=== PATIENT | female | born 1955 | race African-American/Black ===

== ENCOUNTER 2016-11-07 16:50 | Outpatient (CLI) | payer MEDICARE, OTHER ==
[2016-04-11 23:33] VITALS: BP 110/63
== END 2016-11-07 16:52 ==
LOC: LAB 16:50
PROVIDERS: ATTEND Family Medicine
DX: J40 Bronchitis, not specified as acute or chronic (principal)
CPT/HCPCS: 87070; 87205

== ENCOUNTER 2017-02-13 10:42 | Outpatient (CLI) | payer MEDICARE, OTHER ==
[2016-04-11 23:33] VITALS: BP 110/63
[2017-02-13 11:01] LABS: BASOPHILS % 0.3 (0.0-1.5); MEAN CORPUSCULAR HEMOGLOBIN 31.2 pg (28.0-34.0); MEAN CORPUSCULAR VOLUME 98.2 fl (80.0-100.0); MONOCYTES % 6.8 % (0.0-11.0); NEUTROPHILS # 4.1 # k/uL (1.4-7.7)
[2017-02-13 11:32] LABS: eGFR (African) 8; eGFR (Non-African) 7
--- NOTE | 2017-02-13 14:47 | Diagnostic Imaging Report ---
MALICK TINSLEY - OP [facility] [address] [facility] [address] Report Submission Date: Feb 13, 2017 11:23:49 AM CDT Patient Study Name: LORETA URIBE Date: Feb 13, 2017 11:01:33 AM CDT Modality Type: CR Gender: F Description: CHEST : 57 Institution: [facility] Physician: MALICK TINSLEY - KASHIF Chest - two views Clinical history: Preoperative evaluation. Findings: Examination of the chest in PA and lateral views with comparison to examination of 01/07/2017 demonstrates the lungs to be clear. Cardiovascular and mediastinal silhouettes are stable. Multiple sternotomy wires are again seen. Degenerative changes are seen in the thoracic vertebrae. Impression: 1. Postoperative chest. 2. Aortic atherosclerosis. 3. No active disease. Electronically signed on Feb 13, 2017 11:23:49 AM CDT by: Rosas ANGELES
== END 2017-02-13 10:44 ==
LOC: LAB 10:42
PROVIDERS: ATTEND Otolaryngology
DX: Z51.81 Encounter for therapeutic drug level monitoring (principal); Z79.899 Other long term (current) drug therapy; Z01.818 Encounter for other preprocedural examination
CPT/HCPCS: 36415; 71020; 80053; 85025

== ENCOUNTER 2018-02-19 15:54 | Outpatient (CLI) | payer MEDICARE, OTHER ==
[2016-04-11 23:33] VITALS: BP 110/63
--- NOTE | 2018-02-20 11:09 | OP Clinic Progress Note ---
REASON FOR VISIT: Sonja is seen accompanied by her mother. She is a 62-year-old female patient who is seen in a wheelchair. By history, she is on dialysis. She also has a history of a goiter. The history is provided in part by the patient and also in part by her daughter. There is a question if she at times gets fluid on her lungs and the question would be whether she might be aspirating. The patient has a little tension in her voice. Nevertheless, I used a flexible fiberoptic pediatric laryngoscope passing down the left nostril, as there is right nasal septal deviation. I had a very good look at her larynx. There is no laryngeal lesion or supraglottic lesion. Both vocal cords abduct apart or adduct together really very normally. There is no evident mass or lesion. There is no paralysis and there is good closure. I had the patient's daughter look in the laryngoscope twice and although she has not seen a larynx before, she can clearly see that the V-shaped structure opens and closes and there is confirmation that there is good closure. The patient does have some dysphagia. By history, she does not clearly aspirate. There are no complaints that she coughs and chokes and sputters when she eats. PLAN: I suggested getting a video swallow. At that point, the daughter noted that she had that study done perhaps 2 years ago at the [facility]. They state that they are comfortable and would like to go ahead and get a repeat video swallow. That can be done here at [facility] and that will be arranged in the near future. I will have a copy of it sent to Dr. Pratt when that occurs. cc: Dr. Mag ANGELES
== END 2018-02-19 15:55 ==
LOC: ENT 15:54
PROVIDERS: ATTEND Otolaryngology
DX: R13.10 Dysphagia, unspecified (principal)
CPT/HCPCS: 31575; G0463

== ENCOUNTER 2018-02-21 11:41 | Outpatient (CLI) | payer MEDICARE, OTHER ==
[2016-04-11 23:33] VITALS: BP 110/63
--- NOTE | 2018-02-21 19:03 | Diagnostic Imaging Report ---
MALICK TINSLEY [facility] [address] [facility] [address] [place], [place]. [address] Report Submission Date: Feb 21, 2018 12:59:25 PM CDT Patient Study Name: LORETA URIBE V Date: Feb 21, 2018 12:17:47 PM CDT Modality Type: CT\SR Gender: F Description: CT BRAIN W/O CONTRAST : 57 Institution: [facility] Physician: MALICK TINSLEY Examination: CT head without contrast History: CT HEAD W/O, SUBDURAL HEMATOMA, PT STATES SHE HAD A FALL ABOUT A WEEK AGO AND HAS BEEN SEEING THINGS SINCE (Hx) Comparison exam: None available Technique: Noncontrast head CT protocol. Findings: Ventricles and sulci are prominent, though consistent for patient age. Cerebrocerebellar parenchyma demonstrates periventricular low attenuation consistent with small vessel disease. No evidence for parenchymal hemorrhage. No evidence for mass or mass effect. No midline shift. No extra axial fluid collections. Partial visualization of the paranasal sinuses, mastoid air cells, orbits, skull and scalp without gross irregularity. Scattered falx calcifications. Impression: Age related changes. No acute parenchymal process. No hemorrhage. Electronically signed on Feb 21, 2018 12:59:25 PM CDT by: Antoine ANGELES
== END 2018-02-21 11:42 ==
LOC: RAD 11:41
PROVIDERS: ATTEND Family Medicine
DX: I62.00 Nontraumatic subdural hemorrhage, unspecified (principal)
CPT/HCPCS: 70450

== ENCOUNTER 2018-02-26 15:02 | Outpatient (CLI) | payer MEDICARE, OTHER ==
[2016-04-11 23:33] VITALS: BP 110/63
== END 2018-02-26 15:03 ==
LOC: RAD 15:02
PROVIDERS: ATTEND Family Medicine
DX: R47.02 Dysphasia (principal)
CPT/HCPCS: 74230

== ENCOUNTER 2018-04-19 20:57 | Emergency (ER) | payer MEDICARE, OTHER ==
[2018-04-19] MEDS ORDERED: IPRATROPIUM/ALBUTEROL SULFATE 3 ML AMPUL.NEB NEB ONE (21:11)
[2018-04-19 21:36] LABS: BASOPHILS % 0.6 (0.0-1.5); EOSINOPHILS % 1.8 % (0.0-6.8); MEAN CORPUSCULAR HEMOGLOBIN 30.7 pg (28.0-34.0); MEAN CORPUSCULAR VOLUME 98.8 fl (80.0-100.0); MONOCYTES % 6.1 % (0.0-11.0); NEUTROPHILS # 3.6 # k/uL (1.4-7.7)
--- NOTE | 2018-04-19 21:57 | ED Physician Documentation ---
General Adult - HISTORIAN Historian: patient, child (daughter) - HPI Stated Complaint: SOA all day Chief Complaint: General Adult Additional Information: Did not go to dialysis yesterday as she did not feel well. Today she has been increasingly SOB. Typically uses 2L/NC for sleep, but has required 3L/NC all day. Last albuterol neb at 1600. Seen at [facility] on 04/15 for dialysis and blood transfusion. Carries diagnosis of pulmonary edema. Does not recognize "congestive heart failure." - ROS CONST: denies: fever, sweating CVS/RESP: shortness of breath. denies: chest pain, cough - PAST HX Past History: hypertension, other (subdural hematoma) Surgeries/Procedures: other (thoracotomy per CXR) Allergies/Adverse Reactions: Allergies Allergy/AdvReac Type Severity Reaction Status Date / Time acetaminophen [From Percocet] Allergy Verified 04/11/16 23:23 atorvastatin calcium Allergy Verified 04/11/16 23:23 [From Lipitor] clonidine Allergy Verified 04/11/16 23:23 hydrocodone Allergy Verified 04/11/16 23:23 ibuprofen Allergy Verified 04/11/16 23:23 Iodinated Contrast- Oral and Allergy Verified 04/11/16 23:23 IV Dye methylprednisolone Allergy Verified 04/11/16 23:23 morphine Allergy Verified 04/11/16 23:23 oxycodone HCl [From Percocet] Allergy Verified 04/11/16 23:23 Penicillins Allergy Verified 04/11/16 23:23 prednisone Allergy Verified 04/11/16 23:23 Home Medications: Ambulatory Orders Medication Instructions Recorded Levothyroxine Sodium [Synthroid] 75 mcg PO DAILY 07/07/13 Aspirin [Aspir 81] 81 mg PO DAILY u2 07/29/13 traMADol HCL [Ultram] 50 mg PO Q6H PRN #30 tablet 03/08/15 Omeprazole [Prilosec] 40 mg PO DAILY #30 capsule. 03/21/15 Clopidogrel Bisulfate [Clopidogrel] 75 mg PO DAILY 12/05/15 Isosorbide Dinitrate [Isordil] 20 mg PO DAILY 12/05/15 Minoxidil [Loniten] 5 mg PO DAILY 12/05/15 Nitroglycerin [Nitrostat] 0.3 mg SL PRN PRN 12/05/15 Rosuvastatin Calcium [Crestor] 20 mg PO HS 12/05/15 Sevelamer Carbonate [Renvela] 2,400 mg PO BID 12/05/15 Cyclobenzaprine HCl 10 mg PO Q8 PRN 04/11/16 LORazepam [Ativan] 1 mg PO QID PRN 04/11/16 Metoprolol Tartrate [Lopressor] 25 mg PO BID 04/11/16 hydrALAZINE HCL [Apresoline] 20 mg PO TID 04/11/16 traZODone HCL [Desyrel] 50 mg PO HS 04/11/16 - SOCIAL HX Smoking History: non-smoker - FAMILY HX Family History: No - VITAL SIGNS Vital Signs: Vital Signs Temp Pulse Resp BP Pulse Ox 97.3 F L 96 H 16 154/83 87 L 04/19/18 20:58 04/19/18 20:58 04/19/18 20:58 04/19/18 20:58 04/19/18 20:58 - REVIEWED ASSESSMENTS Nursing Assessment Reviewed: Yes Vitals Reviewed: Yes Progress - Progress Progress: Report Submission Date: Apr 19, 2018 9:51:04 PM CDT Patient Study Name: LORETA URIBE V Date: Apr 19, 2018 9:28:45 PM CDT Modality Type: DX Gender: F Description: CHEST : 57 Institution: [facility] Physician: AUSTIN LINDA - Portable chest Clinical history: Shortness of breath. Findings: Examination of the chest in single portable AP view with no prior films for comparison demonstrates haziness in the lung bases consistent with bilateral effusions and bibasilar atelectasis worse on the left. Cardiac silhouette is enlarged and the aorta is atherosclerotic. There are multiple sternotomy wires. Monitor leads superimpose the chest. Impression: 1. Cardiomegaly and aortic atherosclerosis. 2. Postoperative chest. 3. Bilateral pleural effusions with bibasilar atelectasis. Electronically signed on Apr 19, 2018 9:51:04 PM CDT by: Rosas Del Toro Discussed with Dr. Resendiz, [facility] foil operator. Will transfer to ER. ED Results Lab/Radiology - Lab Results Lab Results: Lab Results 04/19/18 04/19/18 09:30 09:30 WBC 4.30 K/ul K/ul (4.00-12.00) RBC 2.75 M/ul L M/ul (3.90-5.20) Hgb 8.4 g/dL L g/dL (12.0-16.0) Hct 27.2 % L % (34.5-46.5) MCV 98.8 fl fl (80.0-100.0) MCH 30.7 pg pg (28.0-34.0) MCHC 31.0 g/dL g/dL (30.0-36.0) RDW 17.3 % H % (11.3-14.3) Plt Count 204 K/mm3 K/mm3 (130-400) Neut % (Auto) 82.2 % H % (39.0-79.0) Lymph % (Auto) 8.0 % L % (16.0-50.0) [place] % (Auto) 6.1 % % (0.0-11.0) Eos % (Auto) 1.8 % % (0.0-6.8) Baso % (Auto) 0.6 (0.0-1.5) Neut # (Auto) 3.6 # k/uL # k/uL (1.4-7.7) Lymph # (Auto) 0.3 # k/uL L # k/uL (0.6-4.0) [place] # (Auto) 0.3 # k/uL # k/uL (0.0-0.9) Eos # (Auto) 0.1 # k/uL # k/uL (0.0-0.6) Baso # (Auto) 0.0 # k/uL # k/uL (0.0-0.5) Reactive Lymphs % 1.4 % % (0.0-5.0) Reactive Lymphs # 0.1 # k/uL # k/uL (0.0-0.8) Sodium 139 mmol/L mmol/L (136-145) Potassium 4.2 mmol/L mmol/L (3.5-5.1) Chloride 95 mmol/L L mmol/L (98-107) Carbon Dioxide 29 mmol/L mmol/L (22-30) BUN 46 mg/dL H mg/dL (7-17) Creatinine 11.10 mg/dL H mg/dL (0.52-1.04) Estimated Creat Clear 7 Est GFR ( Amer) 4 L (60 - ) Est GFR (Non-Af Amer) 4 L (60 - ) Glucose 110 mg/dL H mg/dL (74-106) Calcium 10.0 mg/dL mg/dL (8.4-10.2) Total Bilirubin 0.8 mg/dL mg/dL (0.2-1.3) AST 12 U/L L U/L (15-46) ALT 31 U/L U/L (13-69) Alkaline Phosphatase 71 U/L U/L (38-126) Total Protein 6.8 g/dL g/dL (6.3-8.2) Albumin 3.7 g/dL g/dL (3.5-5.0) - Orders Orders: ED Orders Category Date Time Status Place IV Lock 1T Care 04/19/18 21:09 Active CHEST 1VIEW [RAD] Stat Exams 04/19/18 Taken BNP [NT-proBNP] Stat Lab 04/19/18 09:30 Received CBC/PLATELET/DIFF Routine Lab 04/19/18 09:30 Completed CMP Routine Lab 04/19/18 09:30 Completed TROPONIN I (cTnI) Stat Lab 04/19/18 Ordered URINALYSIS Routine Lab 04/19/18 Ordered Ipratropium/Albuterol Sulfate [Duoneb] Med 04/19/18 21:11 Discontinued 3 ml NEB NOW ONE General Adult Physical Exam - PHYSICAL EXAM GENERAL APPEARANCE: moderate distress EENT: eye inspection normal, ENT inspection normal, pharynx normal NECK: normal inspection, supple RESPIRATORY: rales (throughout) CVS: reg rate & rhythm, heart sounds normal ABDOMEN: soft, normal bowel sounds, no distension SKIN: warm/dry EXTREMITIES: non-tender, no evidence of injury, no edema NEURO: CN's nml as tested, motor nml, sensation nml, cognition normal (slow to respond (daughter says this is normal), whispers) Discharge Clincal Impression: End stage kidney disease Dyspnea Qualifiers: Dyspnea type: shortness of breath Qualified Code(s): R06.02 - Shortness of breath; R06.00 - Dyspnea, unspecified; R06.01 - Orthopnea Referrals: Mag Pratt MD [Primary Care Provider] - 2 Days Condition: Fair Disposition: XFER SHT-TRM HOSP Decision to Admit: NO Decision Time: 22:18
--- NOTE | 2018-04-19 22:03 | Diagnostic Imaging Report ---
AUSTIN LINDA [facility] [address] [facility] [address] [address] Report Submission Date: Apr 19, 2018 9:51:04 PM CDT Patient Study Name: LORETA URIBE V Date: Apr 19, 2018 9:28:45 PM CDT Modality Type: DX Gender: F Description: CHEST : 57 Institution: [facility] Physician: AUSTIN LINDA Portable chest Clinical history: Shortness of breath. Findings: Examination of the chest in single portable AP view with no prior films for comparison demonstrates haziness in the lung bases consistent with bilateral effusions and bibasilar atelectasis worse on the left. Cardiac silhouette is enlarged and the aorta is atherosclerotic. There are multiple sternotomy wires. Monitor leads superimpose the chest. Impression: 1. Cardiomegaly and aortic atherosclerosis. 2. Postoperative chest. 3. Bilateral pleural effusions with bibasilar atelectasis. Electronically signed on Apr 19, 2018 9:51:04 PM CDT by: Rosas ANGELES
[2018-04-20 00:02] VITALS: BP 144/82
== END 2018-04-19 22:48 | disposition short-term general hospital (02) ==
LOC: ED 20:57
DX: N18.6 End stage renal disease (principal); R06.00 Dyspnea, unspecified; R06.01 Orthopnea
CPT/HCPCS: 71045; 80053; 83880; 84484; 85025; 94640; 99284; S1016

== ENCOUNTER 2018-09-27 14:53 | Emergency (ER) | payer MEDICARE, OTHER ==
--- NOTE | 2018-09-27 15:14 | ED Physician Documentation ---
General Adult - HISTORIAN Historian: patient - HPI Stated Complaint: back pain/chest pain x 3 years Chief Complaint: Chest Pain Onset: other (3 years pain is 01-/10 scale ) Timing: still present Severity: mild Further Comments: yes (She reports she has pain in her back that is sometimes in her chest and sometimes all over with mild relief from her muscle relaxer and tylenol at home (she is a diaylisis patient) She has no fever. No new activity . She has pain with touch or movement. She denies any N/V although she at times today felt some nausea. Denies any bleeding.) - ROS CONST: no problems - PAST HX Past History: renal disease, other (hypothyroidism ) Allergies/Adverse Reactions: Allergies Allergy/AdvReac Type Severity Reaction Status Date / Time acetaminophen [From Percocet] Allergy Verified 04/11/16 23:23 atorvastatin calcium Allergy Verified 04/11/16 23:23 [From Lipitor] clonidine Allergy Verified 04/11/16 23:23 hydrocodone Allergy Verified 04/11/16 23:23 ibuprofen Allergy Verified 04/11/16 23:23 Iodinated Contrast- Oral and Allergy Verified 04/11/16 23:23 IV Dye methylprednisolone Allergy Verified 04/11/16 23:23 morphine Allergy Verified 04/11/16 23:23 oxycodone HCl [From Percocet] Allergy Verified 04/11/16 23:23 Penicillins Allergy Verified 04/11/16 23:23 prednisone Allergy Verified 04/11/16 23:23 Home Medications: Ambulatory Orders Medication Instructions Recorded Levothyroxine Sodium [Synthroid] 75 mcg PO DAILY 07/07/13 Aspirin [Aspir 81] 81 mg PO DAILY u2 07/29/13 traMADol HCL [Ultram] 50 mg PO Q6H PRN #30 tablet 03/08/15 Omeprazole [Prilosec] 40 mg PO DAILY #30 capsule. 03/21/15 Clopidogrel Bisulfate [Clopidogrel] 75 mg PO DAILY 12/05/15 Isosorbide Dinitrate [Isordil] 20 mg PO DAILY 12/05/15 Minoxidil [Loniten] 5 mg PO DAILY 12/05/15 Nitroglycerin [Nitrostat] 0.3 mg SL PRN PRN 12/05/15 Rosuvastatin Calcium [Crestor] 20 mg PO HS 12/05/15 Sevelamer Carbonate [Renvela] 2,400 mg PO BID 12/05/15 Cyclobenzaprine HCl 10 mg PO Q8 PRN 04/11/16 LORazepam [Ativan] 1 mg PO QID PRN 04/11/16 Metoprolol Tartrate [Lopressor] 25 mg PO BID 04/11/16 hydrALAZINE HCL [Apresoline] 20 mg PO TID 04/11/16 traZODone HCL [Desyrel] 50 mg PO HS 04/11/16 - SOCIAL HX Smoking History: non-smoker Alcohol Use: none Drug Use: none - FAMILY HX Family History: No - VITAL SIGNS Vital Signs: Vital Signs Temp Pulse Resp BP Pulse Ox 144/82 04/19/18 23:54 - REVIEWED ASSESSMENTS Nursing Assessment Reviewed: Yes Vitals Reviewed: Yes Progress - Progress Progress: 1630: continues to rate pain 11/06 DG 1645: lab and results discussed with pt and daughter. Will call [facility] for possible admission. DG 1720: Dr Crisostomo admission accepting DG 1800: nurse attempted report [facility] will call back. Pt continues to rate pain at 1 .DG 1820: Nurse attempted report [facility] will call back DG 1850: nurse was able to give report and ambulance called for transport DG ED Results Lab/Radiology - Radiology Radiology Impressions: Portable chest History: Chest pain Findings: Heart size is upper normal. Pulmonary vascularity is normal. The lungs are clear. There is no pleural effusion. Obesity is observed. Impression: Upper normal heart size, sternotomy, and obesity. Electronically signed on Sep 27, 2018 4:10:39 PM IT SERVICE DELIVERY MANAGER by: Arya Escobedo General Adult Physical Exam - PHYSICAL EXAM GENERAL APPEARANCE: no distress EENT: eye inspection normal, ENT inspection normal, no signs of dehydration NECK: normal inspection RESPIRATORY: no resp distress, chest non-tender, breath sounds normal, other (pain with palpation on right side upper chest. ) CVS: reg rate & rhythm, heart sounds normal, equal pulses, no murmur ABDOMEN: soft, no distension BACK: normal inspection, no CVA tenderness SKIN: warm/dry, normal color EXTREMITIES: non-tender, normal range of motion, no evidence of injury, no edema NEURO: oriented X3 Discharge Clincal Impression: End stage kidney disease CHF (congestive heart failure) Qualifiers: Heart failure type: unspecified Heart failure chronicity: chronic Qualified Code(s): I50.9 - Heart failure, unspecified Referrals: Mag Pratt MD [Primary Care Provider] - 2 Days Comments: Dr Crisostomo accepting DG Condition: Fair Disposition: 02 XFER SHT-TRM HOSP Decision to Admit: NO Date of Decison to Admit: 09/27/18 Decision Time: 17:50
--- NOTE | 2018-09-27 18:19 | Diagnostic Imaging Report ---
CHARLI VARGAS [facility] [place] [facility] [address] [facility] [address] [place], [place]. [address] Report Submission Date: Sep 27, 2018 4:10:39 PM FOLDER MACHINE Patient Study Name: LORETA URIBE V Date: Sep 27, 2018 3:49:54 PM FOLDER MACHINE Modality Type: DX Gender: F Description: CHEST : 57 Institution: [facility] [place] [facility] Physician: CHARLI VARGAS Portable chest History: Chest pain Findings: Heart size is upper normal. Pulmonary vascularity is normal. The lungs are clear. There is no pleural effusion. Obesity is observed. Impression: Upper normal heart size, sternotomy, and obesity. Electronically signed on Sep 27, 2018 4:10:39 PM FOLDER MACHINE by: Arya ANGELES
[2018-09-27 19:18] VITALS: BP 114/68
[2018-09-28 07:20] LABS: MEAN CORPUSCULAR HEMOGLOBIN 31.1 pg (28.0-34.0)
[2018-09-28 07:21] LABS: BASOPHILS % 0.1 (0.0-1.5); EOSINOPHILS % 1.1 % (0.0-6.8); MONOCYTES % 6.3 % (0.0-11.0); NEUTROPHILS # 6.1 # k/uL (1.4-7.7)
== END 2018-09-27 19:08 | disposition short-term general hospital (02) ==
LOC: ED 14:53
DX: I50.9 Heart failure, unspecified (principal); N18.6 End stage renal disease; Z99.2 Dependence on renal dialysis
CPT/HCPCS: 36415; 71045; 80053; 82550; 83880; 84484; 85025; 99285

== ENCOUNTER 2018-10-01 11:54 | Outpatient (CLI) | payer MEDICARE, OTHER ==
[2018-10-01 16:06] LABS: MEAN CORPUSCULAR HEMOGLOBIN 30.3 pg (28.0-34.0)
[2018-10-01 16:07] LABS: BASOPHILS % 1 % (0-2); EOSINOPHILS % 1 % (0-7); HYPERSEGMENTED NEUTROPHILS PRESENT; MONOCYTES % 7 % (0-11); SEGMENTED NEUTROPHILS % 79 % (39-79)
[2018-10-01 16:08] LABS: ACANTHOCYTES 1+ (NEGATIVE); ANISOCYTOSIS 1+ (NEGATIVE); HYPOCHROMASIA 1+ (NEGATIVE); OVALOCYTES 1+ (NEGATIVE); PLT EST. EST. AGREES W/PLT CT; TARGET CELLS 1+ (NEGATIVE)
== END 2018-10-01 11:56 ==
LOC: LAB 11:54
PROVIDERS: ATTEND Family Medicine
DX: D64.9 Anemia, unspecified (principal)
CPT/HCPCS: 36415; 85025

== ENCOUNTER 2018-10-08 10:00 | Outpatient (CLI) | payer MEDICARE, OTHER ==
[2018-10-08 14:05] LABS: MEAN CORPUSCULAR HEMOGLOBIN 30.5 pg (28.0-34.0)
[2018-10-08 14:06] LABS: BASOPHILS % 0 % (0-2); EOSINOPHILS % 1 % (0-7); HYPOCHROMASIA 1+ (NEGATIVE); MONOCYTES % 7 % (0-11); SEGMENTED NEUTROPHILS % 76 % (39-79)
== END 2018-10-08 10:03 ==
LOC: LAB 10:00
PROVIDERS: ATTEND Family Medicine
DX: D50.0 Iron deficiency anemia secondary to blood loss (chronic) (principal)
CPT/HCPCS: 36415; 85025

== ENCOUNTER 2018-12-09 11:27 | Outpatient (CLI) | payer MEDICARE, OTHER ==
[2018-12-09 11:56] LABS: MEAN CORPUSCULAR HEMOGLOBIN 28.5 pg (28.0-34.0)
== END 2018-12-09 11:30 ==
LOC: LAB 11:27
PROVIDERS: ATTEND Family Medicine
DX: D50.0 Iron deficiency anemia secondary to blood loss (chronic) (principal)
CPT/HCPCS: 36415; 85014; 85018

== ENCOUNTER 2018-12-15 13:37 | Outpatient (CLI) | payer MEDICARE, OTHER ==
[2018-12-15 14:16] LABS: MEAN CORPUSCULAR HEMOGLOBIN 28.1 pg (28.0-34.0)
== END 2018-12-15 13:40 ==
LOC: LAB 13:37
PROVIDERS: ATTEND Family Medicine
DX: D50.0 Iron deficiency anemia secondary to blood loss (chronic) (principal)
CPT/HCPCS: 36415; 85014; 85018

== ENCOUNTER 2019-08-28 13:02 | Emergency (ER) | payer MEDICARE, OTHER ==
--- NOTE | 2019-08-28 13:21 | ED Physician Documentation ---
General Adult - HISTORIAN Historian: patient - HPI Stated Complaint: chest pain chronic now resolved and unresponsive event Chief Complaint: General Adult Onset: other (6 months or more on chronic chest pain -0800 event of concern ) Timing: better Severity: mild Further Comments: yes (per daughter she has had chronic chest pain x 6 months and this am she was noted to seem to just fall back asleep about 0800 and she had a harder than normal time waking her. She had no residual - no weakness. no change in speech no shaking no other complaints. She had no chest pain and currently has no complaints of chest pain. No fall.) - ROS CONST: no problems EYES/ENT: none CVS/RESP: chest pain. denies: shortness of breath, cough GI/: none MS/SKIN/LYMPH: none NEURO/PSYCH: denies: headache, fainting, dizziness, tingling, numbness, difficulty walking, difficulty with speech - PAST HX Past History: other (diaylasis ) Immunizations: UTD Allergies/Adverse Reactions: Allergies Allergy/AdvReac Type Severity Reaction Status Date / Time atorvastatin calcium Allergy Verified 08/28/19 13:25 [From Lipitor] clonidine Allergy Verified 08/28/19 13:25 hydrocodone Allergy Verified 08/28/19 13:25 ibuprofen Allergy Verified 08/28/19 13:25 Iodinated Contrast Media Allergy Verified 08/28/19 13:25 methylprednisolone Allergy Verified 08/28/19 13:25 morphine Allergy Verified 08/28/19 13:25 oxycodone HCl [From Percocet] Allergy Verified 08/28/19 13:25 Penicillins Allergy Verified 08/28/19 13:25 prednisone Allergy Verified 08/28/19 13:25 Home Medications: Ambulatory Orders Medication Instructions Recorded Levothyroxine Sodium [Synthroid] 75 mcg PO DAILY 07/07/13 Aspirin [Aspir 81] 81 mg PO DAILY u2 07/29/13 traMADol HCL [Ultram] 50 mg PO Q6H PRN #30 tablet 03/08/15 Omeprazole [Prilosec] 40 mg PO DAILY #30 capsule. 03/21/15 Clopidogrel Bisulfate [Clopidogrel] 75 mg PO DAILY 12/05/15 Isosorbide Dinitrate [Isordil] 20 mg PO DAILY 12/05/15 Minoxidil [Loniten] 5 mg PO DAILY 12/05/15 Rosuvastatin Calcium [Crestor] 20 mg PO HS 12/05/15 LORazepam [Ativan] 1 mg PO QID PRN 04/11/16 Metoprolol Tartrate [Lopressor] 25 mg PO BID 04/11/16 - SOCIAL HX Smoking History: non-smoker Alcohol Use: none Drug Use: none - FAMILY HX Family History: No - VITAL SIGNS Vital Signs: Vital Signs Temp Pulse Resp BP Pulse Ox 114/68 09/27/18 19:15 - REVIEWED ASSESSMENTS Nursing Assessment Reviewed: Yes Vitals Reviewed: Yes Progress - Progress Progress: 1345: states chest pain - after CT (mid chest) has returned 05/06 DG 1356: Post x 3 nitro pain is resolved DG 1447: [facility] notified about possible admission Arelibonifacio will contact for accepting DG 1535: EMS here for transfer DG General Adult Physical Exam - PHYSICAL EXAM GENERAL APPEARANCE: no distress EENT: eye inspection normal, pharynx normal, no signs of dehydration NECK: normal inspection RESPIRATORY: no resp distress, chest non-tender, breath sounds normal CVS: reg rate & rhythm, heart sounds normal, equal pulses, no murmur ABDOMEN: soft, normal bowel sounds, no distension BACK: normal inspection, no CVA tenderness SKIN: warm/dry, normal color EXTREMITIES: non-tender, normal range of motion, no evidence of injury, no edema NEURO: oriented X3 Discharge Clincal Impression: Chest wall pain CHF (congestive heart failure) Qualifiers: Heart failure type: unspecified Heart failure chronicity: unspecified Qualified Code(s): I50.9 - Heart failure, unspecified Referrals: Mag Pratt MD [REFERRING] - 2 Days Comments: [facility] accepting DG Condition: Fair Disposition: 02 XFER SHT-TRM HOSP Decision to Admit: NO Date of Decison to Admit: 08/28/19 Decision Time: 14:59
[2019-08-28 13:38] LABS: BASOPHILS % 0.3 % (0.0-1.5); HYPOCHROMASIA 2+ (NEGATIVE); NEUTROPHILS # 6.5 # k/uL (1.4-7.7); SEGMENTED NEUTROPHILS % 80 % (39-79)
[2019-08-28] MEDS: NITROGLYCERIN 0.4 MG TAB.SUBL SL ONE (14:17)
--- NOTE | 2019-08-28 14:41 | Diagnostic Imaging Report ---
PATIENT MR#: [id number] PATIENT PATIENT NAME: LORETA URIBE V DATE OF : 1955 REFERRING PHYSICIAN: Samantha Og EXAM DATE: 08/28/2019 ACCESSION NUMBER: [id number] EXAM DESCRIPTION: CT BRAIN W/O CONTRAST Examination: CT head without contrast History: LOC AT HOME Comparison exam: 21 February 2018 Technique: Noncontrast head CT protocol. Findings: Ventricles and sulci are prominent, though stable. Cerebrocerebellar parenchyma demonstrate s periventricular low attenuation consistent with small vessel disease. Increased low attenuation involving the posteri or right frontal lobe wall and right occipital lobe. Stable left basal ganglia lacunar infarct. No evidence for parenc hymal hemorrhage. No evidence for mass or mass effect. No midline shift. No extra axial fluid collections. Partial visu alization of the paranasal sinuses, mastoid air cells, orbits, skull and scalp without gross irregularity. Scattered f joseline calcifications. Impression: Age related changes. 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 No hemorrhage. Consider obtaining MRI brain to further evaluate. Read by: Dr. Antoine Alas Transcribed by: Transcribed Date: Electronically signed by: Dr. Antoine Alas Date signed: 08/28/2019 2:40:53 PM
--- NOTE | 2019-08-28 14:42 | Diagnostic Imaging Report ---
PATIENT MR#: [id number] PATIENT PATIENT NAME: LORETA URIBE V DATE OF : 1955 REFERRING PHYSICIAN: Samantha Og EXAM DATE: 08/28/2019 ACCESSION NUMBER: [id number] EXAM DESCRIPTION: CHEST 1VIEW Examination: Portable chest History: Evaluate lungs Comparison exam: 27 September 2018 Findings: Single view of the chest demonstrates enlarged cardiac and mediastinal silhouette. Tortuous aorta with vascular calcifications. Sternotomy wires. Lung hull without focal infiltrate. No blunting of the c ostophrenic margins. Osseous structures are appropriate for age. Impression: No acute pulmonary process. Cardiomegaly. Read by: Dr. Antoine Alas Transcribed by: Transcribed Date: Electronically signed by: Dr. Antoine Alas Date signed: 08/28/2019 2:41:53 PM
[2019-08-28 15:29] VITALS: BP 113/52
== END 2019-08-28 15:34 | disposition short-term general hospital (02) ==
LOC: ED 13:02
DX: I50.9 Heart failure, unspecified (principal)
CPT/HCPCS: 70450; 71045; 80053; 83880; 84484; 85025; 93005; 99282; 99283

== ENCOUNTER 2019-10-12 15:29 | Emergency (ER) | payer MEDICARE, OTHER ==
--- NOTE | 2019-10-12 16:07 | ED Physician Documentation ---
Foot Injury - HISTORIAN Historian: patient - HPI Chief Complaint: Lower Extremity Problem (Ankle sore/ Infected Toe) Additional Information: 64 year old female with history of DM with dialysis, CAD presents with c/o a healing wound to the left lateral ankle that she noticed 3 weeks ago; she states that it use to look really bad but states it looks much better; her main concern is her left great toe where she pulled an ingrown toenail and has become inc reasingly painful; she has been cleaning it daily and using peroxide. She would like to see Podiatry; she states that she can take Cephalexin. Onset: days ago Where: home Severity: mild Modifying Factors:: pain on movement - ROS CONST: no problems CVS/RESP: none GI/: denies: nausea, vomiting MS/SKIN/LYMPH: denies: foot swelling, ankle swelling - PAST HX Past History: cardiac, diabetes Type 2, other (Dialysis, CHF) Immunizations: UTD Allergies/Adverse Reactions: Allergies Allergy/AdvReac Type Severity Reaction Status Date / Time atorvastatin calcium Allergy Verified 10/12/19 16:11 [From Lipitor] clonidine Allergy Verified 10/12/19 16:11 hydrocodone Allergy Verified 10/12/19 16:11 ibuprofen Allergy Verified 10/12/19 16:11 Iodinated Contrast Media Allergy Verified 10/12/19 16:11 methylprednisolone Allergy Verified 10/12/19 16:11 morphine Allergy Verified 10/12/19 16:11 oxycodone HCl [From Percocet] Allergy Verified 10/12/19 16:11 Penicillins Allergy Verified 10/12/19 16:11 prednisone Allergy Verified 10/12/19 16:11 Home Medications: Ambulatory Orders Medication Instructions Recorded Levothyroxine Sodium [Synthroid] 75 mcg PO DAILY 07/07/13 Aspirin [Aspir 81] 81 mg PO DAILY u2 07/29/13 traMADol HCL [Ultram] 50 mg PO Q6H PRN #30 tablet 03/08/15 Omeprazole [Prilosec] 40 mg PO DAILY #30 capsule. 03/21/15 Clopidogrel Bisulfate [Clopidogrel] 75 mg PO DAILY 12/05/15 Isosorbide Dinitrate [Isordil] 20 mg PO DAILY 12/05/15 Minoxidil [Loniten] 5 mg PO DAILY 12/05/15 Rosuvastatin Calcium [Crestor] 20 mg PO HS 12/05/15 LORazepam [Ativan] 1 mg PO QID PRN 04/11/16 Metoprolol Tartrate [Lopressor] 25 mg PO BID 04/11/16 Cephalexin [Keflex] 500 mg PO Q6H #40 capsule 10/12/19 - SOCIAL HX Smoking History: non-smoker Alcohol Use: none Drug Use: none - FAMILY HX Family History: none - VITAL SIGNS Vital Signs: Vital Signs Temp Pulse Resp BP Pulse Ox 113/52 08/28/19 15:25 - REVIEWED ASSESSMENTS Nursing Assessment Reviewed: Yes Vitals Reviewed: Yes Foot Injury Physical Exam - Physical Exam General Appearance: no acute distress, alert Ankle: left: abrasions/laceration (healing wound to the left lateral ankle), other (redness, discomfort to left great toe) Gait: normal Neuro: sensation nml, motor nml Vascular: no vascular compromise Tendons: tendon function nml Leg/Knee/Thigh: uninjured above ankle Skin: intact, warm Head/ENT: nml inspection Neck/Back: nml inspection Resp/CVS: breath sounds nml Discharge Clincal Impression: Wound of left ankle, Ingrowing left great toenail Prescriptions: Cephalexin [Keflex] 500 mg PO Q6H #40 capsule Referrals: Mag Pratt MD [Primary Care Provider] - 2 Days Additional Instructions: Infection to toe Take medication as directed Will send referral to Dr. Thomas (Podiatry) Comments: Referral handed to Holly for Podiatry Condition: Good Disposition: 01 HOME, SELF-CARE Decision to Admit: NO Decision Time: 16:30
[2019-10-12 16:10] VITALS: BP 132/61
== END 2019-10-12 16:21 | disposition home or self-care (01) ==
LOC: ED 15:29
DX: L60.0 Ingrowing nail (principal); S90.512A Abrasion, left ankle, initial encounter; X58.XXXA Exposure to other specified factors, initial encounter